=== PATIENT | male | born 1945 | race Caucasian/White ===

== ENCOUNTER 2022-03-06 10:17 | Emergency (ER) | payer MEDICARE, OTHER ==
[~2022-03-06 10:17] MED LIST: ASPIRIN EC81 MG PO; AUGMENTIN 875-1 EACH PO; BENTYL10 MG PO; CIPRO500 MG PO; EFFEXOR XR37.5 MG PO; LIPITOR 10MG TA10 MG PO; METRONIDAZOLE500 MG PO; NAPROXEN500 MG PO; PROSCAR5 MG PO; REMERON15 MG PO; SKELAXIN800 MG PO; SYNTHROID25 MCG PO; WELLBUTRIN75 MG PO
[2022-03-06 11:11] LABS: BILIRUBIN NEGATIVE (NEGATIVE); BLOOD 3+ Ery/uL (NEGATIVE); CLARITY HAZY (CLEAR); GLUCOSE (U) NORMAL (NORMAL); LEUKOCYTES NEGATIVE Leu/uL (NEGATIVE); NITRITE NEGATIVE (NEGATIVE); PROTEIN TRACE (LOW) mg/dL (NEGATIVE); UROBILINOGEN 0.2 mg/dL (0.2-1.0)
[2022-03-06 11:15] LABS: COLOR RED (YELLOW)
[2022-03-06 11:19] LABS: INR 1.07 (0.9-1.2); PROTHROMBIN TIME 13.3 SECONDS (11.8-13.4)
[2022-03-06 11:26] LABS: BASOPHIL 0.5 % (0-2); EOSINOPHIL 2.6 % (0-7); HCT 42.5 % (42.0-52.0); HGB 14.5 g/dl (13.2-18.0); LYMPHOCYTE 33.8 % (15-48); MCH 31.7 pg (25.0-31.0); MCHC 34.1 g/dL (32.0-36.0); MONOCYTE 7.6 % (0-12); MPV 10.2 fL (6.0-9.5); NEUTROPHIL 55.4 % (41-80); NRBC 0; PLT 272 K/uL (150-400); RBC 4.57 M/uL (4.70-6.00); RDW 13.2 % (11.5-14.0); WBC 7.8 K/uL (4.0-10.5)
[2022-03-06 11:39] LABS: BACTERIA TRACE; SQUAMOUS EPITHELIAL CELLS RARE; URINARY RBC TNTC
[2022-03-06 11:48] LABS: BUN/CREAT RATIO (CALC) 12.1 RATIO; CREATININE 0.99 mg/dL (0.67-1.17); POTASSIUM 3.8 mmol/L (3.5-5.1)
== END 2022-03-06 14:20 | disposition home or self-care (01) ==
LOC: FER 10:17
PROVIDERS: Emergency Medicine
DX: R31.9 Hematuria, unspecified (principal); E03.9 Hypothyroidism, unspecified; Z79.890 Hormone replacement therapy
CPT/HCPCS: 36415; 80048; 81001; 85025; 85610; 85730; Q9967